=== PATIENT | male | born 1990 | race Caucasian/White ===

== ENCOUNTER 2024-05-15 08:12 | Emergency (ER) | payer SELFPAY ==
[~2024-05-15] VITALS: Ht 170.2 cm; Wt 113.4 kg
[2024-05-15 08:15] VITALS: BP 119/79; PULSE 80; RESP 16; TEMP 98.3; O2SAT 100; O2SAT 99
[2024-05-15] MEDS: TETRACAINE 0.5% OPHTH DROPS 4ML BOTHEYE ONE (08:39)
[2024-05-15] MEDS: FLUORESCEIN SODIUM 1MG/STRIP BOTHEYE ONE (08:39)
[2024-05-15] MEDS ORDERED: OCUFLX EACHEYE (09:06)
== END 2024-05-15 09:17 | disposition home or self-care (01) ==
LOC: ER 08:12
DX: H10.9 Unspecified conjunctivitis (principal)
CPT/HCPCS: 99283